=== PATIENT | male | born 1995 | race Caucasian/White ===

== ENCOUNTER 2020-01-08 06:13 | Emergency (ER) | payer OTHER ==
[~2020-01-08] VITALS: Ht 177.8 cm; Wt 61.2 kg
[2020-01-08] MEDS ORDERED: CARAFATE1 GM PO (06:30)
[2020-01-08] MEDS ORDERED: ZOFRAN4 MG PO (06:31)
[2020-01-08] MEDS ORDERED: BENTYL10 MG/1 ML PO (06:32)
[2020-01-08] MEDS ORDERED: ESCITALOPRA5 MG/5 ML PO (06:33)
[2020-01-08 07:01] LABS: ABSOLUTE NEUTROPHILS 4.3 thou/uL (1.4-8.2); BASOPHILS 0.7 % (0.0-2.0); EOSINOPHILS 2.6 % (0.0-3.0); HEMATOCRIT 41.6 % (42.0-52.0); HEMOGLOBIN 14.4 gm/dL (14.0-18.0); LYMPHOCYTES 27.3 % (24.0-44.0); MCH 30.9 pg (26.0-34.0); MCHC 34.5 g/dL (28.0-37.0); MCV 89.7 fL (80.0-100.0); MONOCYTES 6.9 % (1.0-8.0); PLATELET COUNT 189 thou/uL (150-400); POLYS 62.5 % (36.0-66.0); RBC 4.64 mil/uL (4.50-6.00); RDW 13.3 % (10.5-14.5); WBC 6.9 thou/uL (4.0-11.0)
[2020-01-08 07:23] LABS: ANION GAP 8 mmol/L (7-16); BUN 15 mg/dL (7-18); CALCIUM 8.6 mg/dL (8.5-10.1); CHLORIDE 105 mmol/L (98-107); CO2 27 mmol/L (21-32); CREATININE 0.9 mg/dL (0.7-1.3); GLUCOSE 102 mg/dL (74-106); POTASSIUM 3.3 mmol/L (3.5-5.1); SODIUM 140 mmol/L (136-145)
[2020-01-08 07:34] LABS: ALBUMIN 4.1 g/dL (3.4-5.0); DIRECT BILIRUBIN < 0.1 mg/dL (<0.1-0.2); LIPASE 158 U/L (73-393); SGOT 15 U/L (15-37); SGPT 19 U/L (30-65); TOTAL BILIRUBIN 1.1 mg/dL (0.2-1.0); TOTAL PROTEIN 6.9 g/dL (6.4-8.2)
[2020-01-08 11:26] LABS: URINE BILIRUBIN NEGATIVE (Negative); URINE BLOOD NEGATIVE (Negative); URINE CLARITY CLEAR; URINE COLOR YELLOW; URINE GLUCOSE-RANDOM* NEGATIVE (Negative); URINE KETONES TRACE (Negative); URINE LEUKOCYTES-REFLEX NEGATIVE (Negative); URINE NITRITE-REFLEX NEGATIVE (Negative); URINE PROTEIN (DIPSTICK) NEGATIVE (Negative); URINE UROBILINOGEN 0.2 E.U./dl (0.2-1.0)
[2020-01-08 12:02] VITALS: BP 111/75
== END 2020-01-08 12:02 | disposition home or self-care (01) ==
LOC: ER 06:13
PROVIDERS: Emergency Medicine
DX: R33.9 Retention of urine, unspecified (principal); Z88.0 Allergy status to penicillin; Z79.899 Other long term (current) drug therapy